=== PATIENT | male | born 1960 | race Caucasian/White ===

== ENCOUNTER 2018-08-31 06:39 | Day surgery (SDC) | payer OTHER ==
[2018-08-31 07:07] VITALS: BMI 26.3
[2018-08-31] MEDS ORDERED: Lidocaine Hydrochloride 5 ML INJ ONE (08:20)
[2018-08-31] MEDS ORDERED: Propofol 10 mg/ml Inj (20 ML) ONE (08:20)
[2018-08-31] MEDS: Lactated Ringer's 500 ML IV ONE (08:51)
[2018-08-31 10:22] VITALS: TEMP 98.3
[2018-08-31 12:36] VITALS: BP 124/85; PULSE 68; O2SAT 99
[2018-08-31 12:43] VITALS: RESP 144
== END 2018-08-31 10:30 | disposition home or self-care (01) ==
LOC: C.ENDO 06:39
PROVIDERS: ATTEND Internal Medicine Gastroenterology
DX: Z12.11 Encounter for screening for malignant neoplasm of colon (principal); D12.4 Benign neoplasm of descending colon; K63.5 Polyp of colon; K57.30 Diverticulosis of large intestine without perforation or abscess without bleeding; K64.1 Second degree hemorrhoids; Z87.19 Personal history of other diseases of the digestive system; I10 Essential (primary) hypertension; E11.9 Type 2 diabetes mellitus without complications
CPT/HCPCS: 45380; 82948; 88305; J2704; J7120